=== PATIENT | male | born 1945 | race American Indian/Alaskan Native ===

== ENCOUNTER 2017-08-14 09:12 | Emergency (ER) | payer MEDICARE ==
[2017-08-14 09:13] VITALS: BMI 35.4
[2017-08-14 09:28] VITALS: TEMP 97.4
--- NOTE | 2017-08-14 10:07 | C.PDOC ---
History Of Present Illness 72-YEAR-OLD MALE, PRESENTS TO THE EMERGENCY DEPARTMENT WITH COMPLAINTS OF PERSIST R HAND SWELLING X 2 WEEKS. PT HAS HO GOUT, PS SIMILAR TO PRIOR EPISODES IN R HAND. SAW PMD GOT "SHOT IN MY ARM" 1 WEEK AGO BUT NO IMPROVE. PAIN AND SWELLING WORSE TOP OF HAND, R WRIST. WORSE W MOVEMENT. HO DM. DENIES FEVER, REDNESS, TRAUMA. PS TAKING "SMALL PURPLE PILL" X 3 DAYS WO IMPROVE. DENIES DIARRHEA. 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 DIFFUSE TEND TOP OF HAND. LIMITED ROM DUE TO PAIN. SKIN NO ERYTHEMA, LESIONS; INTACT NEURO INTACT Time Seen by Provider: 08/14/17 09:57 Chief Complaint (Nursing): Upper Extremity Problem/Injury History Per: Patient History/Exam Limitations: no limitations Past Medical History Reviewed: Historical Data, Nursing Documentation, Vital Signs Vital Signs: Last Vital Signs Temp 97.4 F L 08/14/17 09:27 Pulse 68 08/14/17 11:19 Resp 18 08/14/17 11:19 BP 142/82 08/14/17 11:19 Pulse Ox 97 08/14/17 11:19 - Medical History PMH: Diabetes, HTN, Hypercholesterolemia (NO LONGER ON MED.) Surgical History: Coronary Stent Family History: States: No Known Family Hx - Social History Hx Tobacco Use: Yes Hx Alcohol Use: No Hx Substance Use: No - Immunization History Hx Tetanus Toxoid Vaccination: No Hx Influenza Vaccination: No Hx Pneumococcal Vaccination: No Review Of Systems Except As Marked, All Systems Reviewed And Found Negative. Constitutional: Negative for: Fever Respiratory: Negative for: Shortness of Breath Gastrointestinal: Negative for: Nausea Musculoskeletal: Positive for: Hand Pain (RIGHT HAND W/ SWELL) Skin: Negative for: Rash Physical Exam - Physical Exam Appears: Non-toxic, Other (MILD DIST ) Skin: Warm, Dry, No Rash Head: Atraumatic, Normacephalic Eye(s): bilateral: Normal Inspection, PERRL Nose: Normal Oral Mucosa: Moist Neck: Normal ROM Respiratory: No Accessory Muscle Use Extremity: Other (EXT LUE NEG; R HAND +SEVERE SWELLING DORSAL W EXTENSION TO DORSAL DISTAL FOREARM. DIFFUSE TEND TOP OF HAND. LIMITED ROM DUE TO PAIN. ) Neurological/Psych: Oriented x3, Normal Speech ED Course And Treatment O2 Sat by Pulse Oximetry: 99 Disposition Counseled Patient/Family Regarding: Diagnosis, Need For Followup, Rx Given - Disposition Referrals: Kevin Haddad MD [Primary Care Provider] - Disposition: HOME/ ROUTINE Disposition Time: 11:22 Condition: IMPROVED Prescriptions: Indomethacin [Indocin] 50 mg PO TID PRN #12 cap PRN Reason: Pain, Moderate (4-7) predniSONE [Prednisone] 60 mg PO DAILY #12 tab Instructions: Gout (ED) Forms: [employer] (Nigerien) - Clinical Impression Clinical Impression: Gout, Hand swelling - Scribe Statement The provider has reviewed the documentation as recorded by the Scribe (Cecelia Campos) All medical record entries made by the Scribe were at my direction and personally dictated by me. I have reviewed the chart and agree that the record accurately reflects my personal performance of the history, physical exam, medical decision making, and the department course for this patient. I have also personally directed, reviewed, and agree with the discharge instructions and disposition.
[2017-08-14 11:20] VITALS: BP 142/82; PULSE 68; RESP 18
[2017-08-14 11:24] VITALS: O2SAT 99
== END 2017-08-14 11:50 | disposition home or self-care (01) ==
LOC: C.ER 09:12 → SUPCPDRO 09:12 → C.ER 11:50
DX: M10.9 Gout, unspecified (principal); M79.89 Other specified soft tissue disorders

== ENCOUNTER 2017-10-07 12:44 | Emergency (ER) | payer MEDICARE ==
[2017-10-07 12:45] VITALS: BMI 35.4
[2017-10-07 12:58] VITALS: TEMP 97.4
--- NOTE | 2017-10-07 13:45 | C.PDOC ---
History Of Present Illness 72 y/o male presents to ED for evaluation of headache, neck pain, and abdominal pain s/p slip and fall while walking to work today. Pt states he slipped on ice , and fell on his left side, hitting his head, and states he slipped again while trying to get up, fell, and hit the right side of his body. Pt notes that he was started on unknown blood thinner 1 week ago by PMD, Dr. Haddad, for unknown reasons. Otherwise, denies LOC, nausea, vomiting, shortness of breath, or any other associated symptoms at this time. Denies drug or alcohol use. Time Seen by Provider: 10/07/17 13:29 Chief Complaint (Nursing): Back Pain History Per: Patient History/Exam Limitations: no limitations Onset/Duration Of Symptoms: Hrs Current Symptoms Are (Timing): Still Present Quality Of Discomfort: "Pain" Previous Symptoms: Prior Injury Associated Symptoms: denies: New Weakness, New Numbness Exacerbating Factor(s): Nothing Recent travel outside of the [place]: No Additional History Per: Patient Past Medical History Reviewed: Historical Data, Nursing Documentation, Vital Signs Vital Signs: Last Vital Signs Temp 97.4 F L 10/07/17 12:56 Pulse 51 L 10/07/17 18:03 Resp 18 10/07/17 18:03 BP 142/60 10/07/17 18:03 Pulse Ox 100 10/07/17 18:03 - Medical History PMH: Diabetes, HTN, Hypercholesterolemia (NO LONGER ON MED.) Denies: Chronic Kidney Disease Surgical History: Coronary Stent Family History: States: Unknown Family Hx - Social History Hx Tobacco Use: Yes Hx Alcohol Use: No Hx Substance Use: No - Immunization History Hx Tetanus Toxoid Vaccination: No Hx Influenza Vaccination: No Hx Pneumococcal Vaccination: No Review Of Systems Except As Marked, All Systems Reviewed And Found Negative. Constitutional: Negative for: Fever, Chills Cardiovascular: Negative for: Chest Pain, Palpitations Respiratory: Negative for: Cough, Shortness of Breath Gastrointestinal: Positive for: Abdominal Pain. Negative for: Nausea, Vomiting Musculoskeletal: Positive for: Neck Pain. Negative for: Back Pain Neurological: Positive for: Headache. Negative for: Weakness, Numbness, Dizziness Physical Exam - Physical Exam Appears: Non-toxic, No Acute Distress Skin: Normal Color, Warm, Dry Head: Normacephalic, No Tenderness, Other (hematoma to left side of head) Eye(s): bilateral: Normal Inspection Oral Mucosa: Moist Neck: Normal ROM, No Midline Cervical Tenderness, Paracervical Tenderness (mild left), Supple Chest: Symmetrical, No Deformity, Tenderness (right bony rib tenderness) Cardiovascular: Rhythm Regular, No Murmur Respiratory: Normal Breath Sounds, No Rales, No Rhonchi, No Wheezing Gastrointestinal/Abdominal: Soft, Tenderness (right side of abdomen), No Guarding, No Rebound Back: Normal Inspection Extremity: Normal ROM, No Tenderness, Capillary Refill (less than 2 seconds), No Deformity Extremity: Bilateral: Hips Non-Tender (No bony hip tenderness), Normal ROM, Pelvis-Stable Neurological/Psych: Oriented x3 (Alert, awake), Normal Speech Gait: Steady ED Course And Treatment - Laboratory Results Result Diagrams: 10/07/17 14:38 10/07/17 14:38 Medical Decision Making Medical Decision Making: Blood work, CXR, head CT, cervical spine CT, chest, abd, pelvis CT ordered and reviewed. Pt was given Morphine IVP. CT Head FINDINGS: HEMORRHAGE: No intracranial hemorrhage. BRAIN: No mass effect or edema. Cortical atrophy, periventricular small vessel disease VENTRICLES: Unremarkable. No hydrocephalus. CALVARIUM: Unremarkable. 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 Disruption the medial wall of the right maxillary sinus suggests prior surgery. MASTOID AIR CELLS: Unremarkable as visualized. No inflammatory changes. OTHER FINDINGS: None. IMPRESSION: No acute intracranial abnormalities. No significant findings to account for the clinical presentation. No significant interval change compared to the prior examination(s). C-spine FINDINGS: VERTEBRAE: No fracture. Normal alignment. No destructive bony lesion. DISCS/SPINAL CANAL/NEURAL FORAMINA: There are multiple osteophyte disc bulging/ protrusion seen at the cervical spine. There is a moderate-sized disc bulge at C2-C3-C3-C4, C4-C5 and C5-C6 associated with moderate spinal and neural foraminal narrowing more prominent at C4-C5 and C5-C6. Multilevel [id number] narrowing of the disc is space also noted more prominent at C4-C5 and C5-C6. PARASPINAL SOFT TISSUES: Unremarkable. OTHER FINDINGS: Mild emphysematous changes are noted at the lung apices. IMPRESSION: No evidence of acute fracture or dislocation. Moderate degenerative disc changes. Multilevel moderate to large disc protrusion associated with multilevel spinal and neural foraminal narrowing more prominent at C3-C4 and C5-C6. CT CHEST WITH CONTRAST: LUNGS: Clear. No nodule, mass or consolidation. MEDIASTINUM: Unremarkable. Normal caliber aorta and pulmonary arterial trunk. No aortic dissection. Mild cardiomegaly is noted. LYMPH NODES: Unremarkable. PLEURA: Unremarkable. No pneumothorax. No pleural fluid. BONES: There is slightly displaced fracture at the posterior aspect of the right 12th rib. OTHER FINDINGS: None. CT ABDOMEN AND PELVIS: LIVER: Unremarkable. No gross lesion or ductal dilatation. GALLBLADDER AND BILE DUCTS: Unremarkable. PANCREAS: Unremarkable. No gross lesion or ductal dilatation. SPLEEN: Unremarkable. ADRENALS: Unremarkable. No mass. KIDNEYS AND URETERS: The kidneys enhance symmetrically. There are multiple cystic lesions are noted in both kidneys. No evidence of hydronephrosis. No evidence of perirenal fluid. VASCULATURE: Unremarkable. No aortic aneurysm. Moderate to severe atherosclerotic disease seen. Multiple foci of mural thickening and atherosclerotic calcification noted in the abdominal aorta and common iliac arteries. BOWEL: Unremarkable. No obstruction. No gross mural thickening. Mild constipation is noted. APPENDIX: No evidence of appendicitis. PERITONEUM: Unremarkable. No free fluid. No free air. LYMPH NODES: Unremarkable. No enlarged lymph nodes. BLADDER: Unremarkable. REPRODUCTIVE: Unremarkable. BONES: No acute fracture. OTHER FINDINGS: None. IMPRESSION: No evidence of pneumothorax or pleural effusion. Slightly displaced fracture at the posterior aspect of the right 12th rib. No evidence of acute pathology in the abdomen and pelvis. Mild cardiomegaly. 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 On reevaluation, patient reports that pain is improved. Vitals WNL. He reports that he can ambulate around and wants to go home. Spoke to PMD Dr. Haddad who will follow-up with patient tomorrow for his isolated rib fracture. Patient was given incentive spirometer and discharged with pain medication. He called a friend to take him home and ambulated out of ED without issue. Disposition - Disposition Referrals: Kevin Haddad MD [Staff Provider] - Disposition: HOME/ ROUTINE Disposition Time: 18:00 Condition: GOOD Additional Instructions: Follow-up with Dr. Haddad tomorrow. Return to ED if condition worsens. Use incentive spirometry. Percocet for severe pain. Motrin for mild pain. Prescriptions: oxyCODONE/Acetaminophen [Percocet 5/325 mg Tab] 1 ea PO Q6 #10 tab Instructions: How to Use an Incentive Spirometer (ED), Rib Fracture (ED) Forms: [employer] (Urdu) - Clinical Impression Clinical Impression: Rib fracture - Scribe Statement The provider has reviewed the documentation as recorded by the Scribe Florencio Choudhury All medical record entries made by the Scribe were at my direction and personally dictated by me. I have reviewed the chart and agree that the record accurately reflects my personal performance of the history, physical exam, medical decision making, and the department course for this patient. I have also personally directed, reviewed, and agree with the discharge instructions and disposition.
--- NOTE | 2017-10-07 14:30 | RAD ---
PROCEDURE: CHEST RADIOGRAPH, 1 VIEW HISTORY: fall COMPARISON: 09/02/2015. FINDINGS: LUNGS: The lungs are well inflated and clear. PLEURA: No pneumothorax or pleural fluid seen. CARDIOVASCULAR: Normal. OSSEOUS STRUCTURES: No significant abnormalities. VISUALIZED UPPER ABDOMEN: Normal. OTHER FINDINGS: None. IMPRESSION: No acute findings.
[2017-10-07] MEDS ORDERED: Morphine 4 MG/ML VIAL ONE (14:40)
[2017-10-07 14:43] LABS: BASO # 0.1 K/uL (0.0-0.2); BASO % 0.7 % (0.0-2.0); EOS # 0.2 K/uL (0.0-0.7); LYMPH # 1.8 K/uL (1.0-4.3); RED CELL DISTRIBUTION WIDTH 16.8 % (11.5-14.5)
[2017-10-07 14:47] LABS: EOS % 2.6 % (0.0-4.0); HEMATOCRIT 40.2 % (35.0-51.0); LYMPH % 22.7 % (20.0-40.0); MEAN CORPUSCULAR HEMOGLOBIN 27.6 pg (27.0-31.0); MEAN CORPUSCULAR HGB CONC 32.8 g/dL (33.0-37.0); MEAN PLATELET VOLUME 7.4 fL (7.2-11.7); MONO # 0.4 K/uL (0.0-0.8); MONO % 5.4 % (0.0-10.0)
[2017-10-07 14:51] LABS: INR 1.1
[2017-10-07 14:53] LABS: MEAN CELL VOLUME 84.1 fL (80.0-94.0)
[2017-10-07 14:55] LABS: ALB/GLOB RATIO 1.3 (1.0-2.1); ALKALINE PHOSPHATASE 124 U/L (38-126); ALT/SGPT 41 U/L (21-72); AST/SGOT 45 U/L (17-59); BILIRUBIN,TOTAL 0.8 mg/dL (0.2-1.3); BLOOD UREA NITROGEN 19 mg/dL (9-20); CALCIUM 8.9 mg/dl (8.6-10.4); CARBON DIOXIDE 32 mmol/L (22-30); CHLORIDE 99 mmol/L (98-107); GFR AFRICAN-AMERICAN > 60; GLUCOSE,RANDOM 133 mg/dL (75-110); POTASSIUM 4.1 mmol/L (3.6-5.2); SODIUM 139 mmol/L (132-148); TOTAL PROTEIN 7.5 g/dL (6.3-8.3)
[2017-10-07 14:58] VITALS: O2SAT 100
[2017-10-07] MEDS ORDERED: Iodixanol 320 MG/ML 100 ML BOTTLE IV ONE (16:21)
--- NOTE | 2017-10-07 17:29 | CT ---
PROCEDURE: CT HEAD WITHOUT CONTRAST. HISTORY: fall on ice, hematoma to L scalp, thinners COMPARISON: 05/02/2015. TECHNIQUE: Axial computed tomography images were obtained through the head/brain without intravenous contrast. Radiation dose: Total exam DLP = 810.37 mGy-cm. This CT exam was performed using one or more of the following dose reduction techniques: Automated exposure control, adjustment of the mA and/or kV according to patient size, and/or use of iterative reconstruction technique. FINDINGS: HEMORRHAGE: No intracranial hemorrhage. BRAIN: No mass effect or edema. Cortical atrophy, periventricular small vessel disease VENTRICLES: Unremarkable. No hydrocephalus. CALVARIUM: Unremarkable. 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 Disruption the medial wall of the right maxillary sinus suggests prior surgery. MASTOID AIR CELLS: Unremarkable as visualized. No inflammatory changes. OTHER FINDINGS: None. IMPRESSION: No acute intracranial abnormalities. No significant findings to account for the clinical presentation. No significant interval change compared to the prior examination(s).
--- NOTE | 2017-10-07 17:34 | CT ---
PROCEDURE: CT Cervical Spine without contrast HISTORY: Status post fall with neck pain COMPARISON: None available. TECHNIQUE: Axial computed tomography images were obtained of the cervical spine without the use of intravenous contrast. Coronal and sagittal reformatted images were created and reviewed. Radiation dose: Total exam DLP = 494.02 mGy-cm. This CT exam was performed using one or more of the following dose reduction techniques: Automated exposure control, adjustment of the mA and/or kV according to patient size, and/or use of iterative reconstruction technique. FINDINGS: VERTEBRAE: No fracture. Normal alignment. No destructive bony lesion. DISCS/SPINAL CANAL/NEURAL FORAMINA: There are multiple osteophyte disc bulging/ protrusion seen at the cervical spine. There is a moderate-sized disc bulge at C2-C3-C3-C4, C4-C5 and C5-C6 associated with moderate spinal and neural foraminal narrowing more prominent at C4-C5 and C5-C6. Multilevel [id number] narrowing of the disc is space also noted more prominent at C4-C5 and C5-C6. PARASPINAL SOFT TISSUES: Unremarkable. OTHER FINDINGS: Mild emphysematous changes are noted at the lung apices. IMPRESSION: No evidence of acute fracture or dislocation. Moderate degenerative disc changes. Multilevel moderate to large disc protrusion associated with multilevel spinal and neural foraminal narrowing more prominent at C3-C4 and C5-C6.
--- NOTE | 2017-10-07 17:52 | CT ---
PROCEDURE: CT Chest, Abdomen and Pelvis with intravenous contrast HISTORY: fall on blood thinners, R chest wall and abd tende COMPARISON: None. TECHNIQUE: IV dose administered: 100 mL Visipaque 320 Radiation dose: Total exam DLP = 799.73 mGy-cm. This CT exam was performed using one or more of the following dose reduction techniques: Automated exposure control, adjustment of the mA and/or kV according to patient size, and/or use of iterative reconstruction technique. FINDINGS: CT CHEST WITH CONTRAST: LUNGS: Clear. No nodule, mass or consolidation. MEDIASTINUM: Unremarkable. Normal caliber aorta and pulmonary arterial trunk. No aortic dissection. Mild cardiomegaly is noted. LYMPH NODES: Unremarkable. PLEURA: Unremarkable. No pneumothorax. No pleural fluid. BONES: There is slightly displaced fracture at the posterior aspect of the right 12th rib. OTHER FINDINGS: None. CT ABDOMEN AND PELVIS: LIVER: Unremarkable. No gross lesion or ductal dilatation. GALLBLADDER AND BILE DUCTS: Unremarkable. PANCREAS: Unremarkable. No gross lesion or ductal dilatation. SPLEEN: Unremarkable. ADRENALS: Unremarkable. No mass. KIDNEYS AND URETERS: The kidneys enhance symmetrically. There are multiple cystic lesions are noted in both kidneys. No evidence of hydronephrosis. No evidence of perirenal fluid. VASCULATURE: Unremarkable. No aortic aneurysm. Moderate to severe atherosclerotic disease seen. Multiple foci of mural thickening and atherosclerotic calcification noted in the abdominal aorta and common iliac arteries. BOWEL: Unremarkable. No obstruction. No gross mural thickening. Mild constipation is noted. APPENDIX: No evidence of appendicitis. PERITONEUM: Unremarkable. No free fluid. No free air. LYMPH NODES: Unremarkable. No enlarged lymph nodes. BLADDER: Unremarkable. REPRODUCTIVE: Unremarkable. BONES: No acute fracture. OTHER FINDINGS: None. IMPRESSION: No evidence of pneumothorax or pleural effusion. Slightly displaced fracture at the posterior aspect of the right 12th rib. No evidence of acute pathology in the abdomen and pelvis. Mild cardiomegaly. 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
[2017-10-07 18:09] VITALS: BP 142/60; PULSE 51; RESP 18
== END 2017-10-07 19:04 | disposition home or self-care (01) ==
LOC: C.ER 12:44
DX: S22.31XA Fracture of one rib, right side, initial encounter for closed fracture (principal); W01.0XXA Fall on same level from slipping, tripping and stumbling without subsequent striking against object, initial encounter
CPT/HCPCS: 70450; 71010; 71260; 72125; 74177; 80053; 85025; 85610; 85730; 86850; 86900; 96374; 99285; J2270; Q9967

== ENCOUNTER 2017-11-05 01:13 | Emergency (ER) | payer MEDICARE ==
[2017-11-05 01:14] VITALS: BMI 35.4
[2017-11-05 01:43] VITALS: RESP 20
[2017-11-05] MEDS ORDERED: Tetracaine 0.5% Ophth (OR ONLY) OU STA (02:00)
[2017-11-05] MEDS ORDERED: Tetracaine 0.5% Ophth (OR ONLY) ONE ×2 (02:08→03:26)
[2017-11-05] MEDS ORDERED: Oxycodone/Acetaminophen 5/325 mg Tab PO STA (02:34)
[2017-11-05] MEDS ORDERED: Oxycodone/Acetaminophen 5/325 mg Tab ONE (03:23)
--- NOTE | 2017-11-05 04:02 | C.PDOC ---
History Of Present Illness 72 year old male presents to the ER with a complaint of posterior neck pain for the past 3 weeks that worsens with movement and radiates to the face, associated with left eye pain for the past 3 days. Patient has a Hx of cataracts and was seen previous by Dr. Houston but did not call him for this complaint. Patient also notes he has been using steroid eye drops for unknown reasons. Denies change in vision, nausea, vomiting, or recent injury. Chief Complaint (Nursing): Eye Problem History Per: Patient History/Exam Limitations: no limitations Onset/Duration Of Symptoms: Days Current Symptoms Are (Timing): Still Present Injury To Eye?: No Wears Contact Lens?: No Associated Symptoms: Pain. denies: Decreased Vision, FB Sensation Recent travel outside of the [place]: No Past Medical History Reviewed: Historical Data, Nursing Documentation, Vital Signs Vital Signs: Last Vital Signs Temp 97.7 F 11/05/17 01:42 Pulse 62 11/05/17 01:42 Resp 20 11/05/17 01:42 BP 184/76 H 11/05/17 01:42 Pulse Ox 99 11/05/17 04:17 - Medical History PMH: Diabetes, HTN, Hypercholesterolemia (NO LONGER ON MED.) Surgical History: Coronary Stent Family History: States: Unknown Family Hx - Social History Hx Tobacco Use: Yes Hx Alcohol Use: No Hx Substance Use: No - Immunization History Hx Tetanus Toxoid Vaccination: No Hx Influenza Vaccination: No Hx Pneumococcal Vaccination: No Review Of Systems Eyes: Positive for: Pain Gastrointestinal: Negative for: Nausea, Vomiting Musculoskeletal: Positive for: Neck Pain Physical Exam - Physical Exam Appears: Non-toxic Skin: Normal Color, Warm, Dry Head: Atraumatic, Normacephalic Eye(s): bilateral: PERRL, EOMI, left: Other (Firm, erythematous, no periorbital swelling, attempted tonopen eye pressure with questionable results of 54 after multiple attempts.) Oral Mucosa: Moist Neck: No Midline Cervical Tenderness, Paracervical Tenderness, Supple Neurological/Psych: Oriented x3, Normal Speech ED Course And Treatment O2 Sat by Pulse Oximetry: 99 (Room air) Pulse Ox Interpretation: Normal - Other Rad Cervical spine x-ray X-Ray: Interpreted by Me, Viewed By Me Interpretation: Severe degenerative joint disease. Progress Note: Percocet administered for pain. X-ray cervical spine ordered, results showed severe degenerative joint disease. Case discussed with Dr. Morton, Satellite Installation Technician insurance verification representative, who instructed not to treat patient in the ER and to sent him to his office at 12:30. Disposition - Disposition Referrals: Ashutosh Morton MD [Staff Provider] - Disposition: HOME/ ROUTINE Disposition Time: 05:06 Condition: STABLE Additional Instructions: Follow up with your PMD within 1-2days. Return to ED if feel worse. Please see Satellite Installation Technician today 11/05/2017 at 12:30 pm. Prescriptions: oxyCODONE/Acetaminophen [Percocet 5/325 mg Tab] 1 tab PO QID PRN #20 tab PRN Reason: Pain Instructions: Eye Pain (ED), Cervical Radiculopathy (ED) Forms: [employer] (Polish) - Clinical Impression Clinical Impression: Pain in eye, Neck pain - PA / FIRST MATE / Resident Statement MD/DO has reviewed & agrees with the documentation as recorded. - Scribe Statement The provider has reviewed the documentation as recorded by the Scribliya Garcia All medical record entries made by the Scribliya were at my direction and personally dictated by me. I have reviewed the chart and agree that the record accurately reflects my personal performance of the history, physical exam, medical decision making, and the department course for this patient. I have also personally directed, reviewed, and agree with the discharge instructions and disposition.
[2017-11-05 06:20] VITALS: BP 130/76; PULSE 84; TEMP 98; O2SAT 97
--- NOTE | 2017-11-05 08:53 | RAD ---
PROCEDURE: Cervical Spine Radiographs. HISTORY: Pain. COMPARISON: CT cervical spine without contrast performed 10/07/17 FINDINGS: Limited two views provided. BONES: Straightening of the normal cervical lordosis may be related to muscle spasm or positioning. Severe multilevel degenerative changes of the spine with prominent anterior osteophytes at C5-C6. The dens tip is not visualized. Partially obscured C7 on lateral view. DISC SPACES: Unremarkable. SOFT TISSUES: Unremarkable. No prevertebral soft tissue swelling. OTHER FINDINGS: Opacification noted within the soft tissues of the right neck likely related to carotid artery. IMPRESSION: Limited study. Straightening of the normal cervical lordosis may be related to muscle spasm or positioning. Severe multilevel degenerative changes of the spine with prominent anterior osteophytes at C5-C6. Dens tip is not visualized. Partially obscured C7 on lateral view. Cross-sectional imaging suggested for further evaluation if indicated.
== END 2017-11-05 06:19 | disposition home or self-care (01) ==
LOC: C.ER 01:13
DX: M54.2 Cervicalgia (principal); H57.12 Ocular pain, left eye

== ENCOUNTER 2018-01-14 16:18 | Inpatient (IN) | payer OTHER, MEDICARE ==
[2018-01-14 16:19] VITALS: BMI 35.4
[2018-01-14 17:02] LABS: BASO # 0.1 K/uL (0.0-0.2); BASO % 1.2 % (0.0-2.0); EOS # 0.4 K/uL (0.0-0.7); EOS % 5.4 % (0.0-4.0); LYMPH # 1.9 K/uL (1.0-4.3); LYMPH % 25.8 % (20.0-40.0); MEAN CELL VOLUME 84.3 fL (80.0-94.0); MEAN CORPUSCULAR HEMOGLOBIN 27.9 pg (27.0-31.0); MEAN CORPUSCULAR HGB CONC 33.1 g/dL (33.0-37.0); MEAN PLATELET VOLUME 7.8 fL (7.2-11.7); MONO # 0.5 K/uL (0.0-0.8); MONO % 6.9 % (0.0-10.0); NEUT # 4.4 K/uL (1.8-7.0); NEUT % 60.7 % (50.0-75.0); RBC 4.29 Mil/uL (4.40-5.90); RED CELL DISTRIBUTION WIDTH 16.3 % (11.5-14.5); WHITE BLOOD COUNT 7.2 K/uL (4.8-10.8)
[2018-01-14 17:15] LABS: ALB/GLOB RATIO 1.1 (1.0-2.1); ALBUMIN 3.8 g/dL (3.5-5.0); ALT/SGPT 22 U/L (21-72); AST/SGOT 17 U/L (17-59); BLOOD UREA NITROGEN 16 mg/dL (9-20); CALCIUM 8.9 mg/dl (8.6-10.4); GFR AFRICAN-AMERICAN > 60; GFR NON-AFRICAN AMERICAN 50; LIPASE 803 U/L (23-300)
--- NOTE | 2018-01-14 17:15 | C.PDOC ---
History Of Present Illness 72 year old male presents to the ER with a complaint of chest pain since last night that began at 20:30 while watching TV. Pain does not radiate but notes its exacerbated by bending down. Patient reports he shortly prior to onset. He had 3 stents placed 4 years ago and he is followed by a slot floor attendant at [facility] [place] but does not recall the name. Patient states he is a smoker but denies any ETOH or drug use. Patient went to see Dr. Haddad today in the office who sent him to the ER for evaluation. Denies leg pain/swelling, SOB, nausea, or vomiting. Time Seen by Provider: 01/14/18 16:25 Chief Complaint (Nursing): Chest Pain History Per: Patient History/Exam Limitations: no limitations Onset/Duration Of Symptoms: Hrs Current Symptoms Are (Timing): Still Present Associated Symptoms: denies: Nausea, Dyspnea, Diaphoresis, Syncope Modifying Factors: None Exacerbating Factors: None Alleviating Factors: None Recent travel outside of the [place]: No Past Medical History Reviewed: Historical Data, Nursing Documentation, Vital Signs Vital Signs: Last Vital Signs Temp 97.6 F 01/17/18 23:20 Pulse 74 01/17/18 23:20 Resp 20 01/17/18 23:20 BP 153/69 H 01/17/18 23:20 Pulse Ox 100 01/17/18 23:20 - Medical History PMH: Diabetes, HTN, Hypercholesterolemia (NO LONGER ON MED.) Surgical History: Coronary Stent - [facility] Procedures FLUOROSCOPY OF ABDOMINAL AORTA USING OTHER CONTRAST (01/16/18) FLUOROSCOPY OF LEFT HEART USING OTHER CONTRAST (01/16/18) FLUOROSCOPY OF MULTIPLE CORONARY ARTERIES USING OTH CONTRAST (01/16/18) MEASURE OF CARDIAC SAMPL & PRESSURE, L HEART, PERC APPROACH (01/16/18) Family History: States: Unknown Family Hx - Social History Hx Tobacco Use: Yes Hx Alcohol Use: No Hx Substance Use: No - Immunization History Hx Tetanus Toxoid Vaccination: No Hx Influenza Vaccination: No Hx Pneumococcal Vaccination: No Review Of Systems Constitutional: Negative for: Fever, Chills Cardiovascular: Positive for: Chest Pain. Negative for: Palpitations Respiratory: Negative for: Cough, Shortness of Breath Gastrointestinal: Negative for: Nausea, Vomiting, Abdominal Pain Musculoskeletal: Negative for: Leg Pain Physical Exam - Physical Exam Appears: Well, Non-toxic, No Acute Distress Skin: Normal Color, Warm, Dry Head: Atraumatic, Normacephalic Eye(s): bilateral: Normal Inspection, EOMI Nose: Normal Oral Mucosa: Moist Neck: Normal ROM, Supple Chest: Symmetrical, No Tenderness Cardiovascular: Rhythm Regular, Murmur Respiratory: Normal Breath Sounds, No Rales, No Rhonchi, No Wheezing Gastrointestinal/Abdominal: Soft, Tenderness (LUQ), No Guarding, No Rebound Extremity: Normal ROM (x4) Neurological/Psych: Oriented x3, Normal Speech ED Course And Treatment - Laboratory Results Result Diagrams: 01/17/18 08:11 01/17/18 08:11 ECG: Interpreted By Me (Dr Bonilla), Viewed By Me ECG Rhythm: Sinus Rhythm, R BBB (new onset) ECG Interpretation: Abnormal (08/28/15) Rate From EC O2 Sat by Pulse Oximetry: 96 (Room air) Pulse Ox Interpretation: Normal Progress Note: Blood work, urinalysis, and CXR ordered. Aspirin administered. Case discsused with Dr Haddad, agreed upon admission. Disposition - Disposition Disposition: HOSPITALIZED Disposition Time: 18:00 Condition: STABLE - Clinical Impression Clinical Impression: Chest pain, CAD (coronary artery disease) - PA / TRAVELING CONSTRUCTION SUPERINTENDENT / Resident Statement MD/DO has reviewed & agrees with the documentation as recorded. - Scribe Statement The provider has reviewed the documentation as recorded by the Scribliya Garcia All medical record entries made by the Scribe were at my direction and personally dictated by me. I have reviewed the chart and agree that the record accurately reflects my personal performance of the history, physical exam, medical decision making, and the department course for this patient. I have also personally directed, reviewed, and agree with the discharge instructions and disposition.
[2018-01-14 17:27] LABS: B-TYPE NATRIURETIC PEPTIDE 899 pg/mL (0-900); CK-MB 0.67 ng/mL (0.0-3.38)
[2018-01-14 20:06] LABS: SQUAMOUS EPITHIAL < 1 /hpf (0-5); URINE BILIRUBIN NEGATIVE (NEGATIVE); URINE BLOOD NEGATIVE (NEGATIVE); URINE CLARITY Clear (Clear); URINE COLOR Yellow (YELLOW); URINE GLUCOSE (UA) NORMAL (Normal); URINE LEUKOCYTE ESTERASE NEG Leu/uL (Negative); URINE PROTEIN NEGATIVE (NEGATIVE)
[2018-01-15 01:25] LABS: CK-MB 0.52 ng/mL (0.0-3.38); TROPONIN I 0.014 ng/mL (0.00-0.120)
--- NOTE | 2018-01-15 08:25 | RAD ---
PROCEDURE: CHEST RADIOGRAPH, 1 VIEW HISTORY: SOB COMPARISON: 10/07/2017. FINDINGS: LUNGS: The lungs are well inflated without focal consolidation. There is bibasilar atelectasis. PLEURA: No pneumothorax or pleural fluid seen. CARDIOVASCULAR: Normal. OSSEOUS STRUCTURES: No significant abnormalities. VISUALIZED UPPER ABDOMEN: Normal. OTHER FINDINGS: None. IMPRESSION: No active pulmonary disease.
[2018-01-15 08:47] LABS: CK-MB 0.46 ng/mL (0.0-3.38); TROPONIN I 0.014 ng/mL (0.00-0.120)
[2018-01-15] MEDS: Enoxaparin 40 mg Syringe SC SCH (09:18)
--- NOTE | 2018-01-15 18:14 | CP.PCM.CON ---
History of Present Illness - History of Present Illness History of Present Illness: 72 Y/O WITH SEVERAL HOURS OF CP. DESCRIBED TIGHTNESS IN LEFT LOWER CHEST. WAXES AND WANES, 5/10 AT WORST. NO RADIATION OR ASSOC SYMPTOMS. PT HAS HX OF PCI X 3. BROUGHT ON BY SITTING UP FROM SUPINE POSITION OR BENDING OVER AT WAIST. Review of Systems - Constitutional Constitutional: As Per HPI. absent: Anorexia, Chills, Daytime Sleepiness, Excessive Sweating, Fatigue, Fever, Frequent Falls, Headache, Increased Appetite , Lethargy, Malaise, Night Sweats, Snoring, Sleep Apnea, Weight Gain, Weight Loss, Weakness, Other - EENT Eyes: As Per HPI. absent: Blind Spots, Blurred Vision, Change in Vision, Decreased Night Vision, Diplopia, Discharge, Dry Eye, Exophthalmos, Floaters, Irritation, Itchy Eyes, Loss of Peripheral Vision, Pain, Photophobia, Requires Corrective Lenses, Sees Flashes, Spots in Vision, Tunnel Vision, Other Visual Disturbances, Loss of Vision, Other Ears: As Per HPI. absent: Decreased Hearing, Ear Discharge, Ear Pain, Tinnitus , Abnormal Hearing, Disequilibrium, Dizziness, Other Nose/Mouth/Throat: As Per HPI. absent: Epistaxis, Nasal Congestion, Nasal Discharge, Nasal Obstruction, Nasal Trauma, Nose Pain, Post Nasal Drip, Sinus Pain, Sinus Pressure, Bleeding Gums, Change in Voice, Dental Pain, Dry Mouth, Dysphagia, Halitosis, Hoarsness, Lip Swelling, Mouth Lesions, Mouth Pain, Odynophagia, Sore Throat, Throat Swelling, Tongue Swelling, Facial Pain, Neck Pain, Neck Mass, Other - Cardiovascular Cardiovascular: As Per HPI, Chest Pain at Rest. absent: Acrocyanosis, Chest Pain, Chest Pain with Activity, Claudication, Diaphoresis, Dyspnea, Dyspnea on Exertion, Edema, Irregular Heart Rhythm, Pain Radiating to Arm/Neck/Jaw, Leg Edema, Leg Ulcers, Lightheadedness, Orthopnea, Palpitations, Paroxysmal Nocturnal Dyspnea, Pedal Edema, Radiating Pain, Rapid Heart Rate, Slow Heart Rate, Syncope, Other - Respiratory Respiratory: As Per HPI. absent: Cough, Dyspnea, Hemoptysis, Dyspnea on Exertion, Wheezing, Snoring, Stridor, Pain on Inspiration, Chest Congestion, Excessive Mucous Production, Change in Mucous Color, Pain with Coughing, Other - Gastrointestinal Gastrointestinal: As Per HPI. absent: Abdominal Pain, Belching, Bloating, Change in Bowel Habits, Change in Stool Character, Coffee Ground Emesis, Constipation, Cramping, Diarrhea, Dyspepsia, Dysphagia, Early Satiety, Excessive Flatus, Fecal Incontinence, Heartburn, Hematemesis, Hematochezia, Loose Stools, Melena, Nausea, Odynophagia, Temesmus, Vomiting, Other - Genitourinary Genitourinary: As Per HPI. absent: Change in Urinary Stream, Difficulty Urinating, Dysuria, Flank Pain, Hematuria, Pyuria, Nocturia, Urinary Incontinence, Urinary Frequency, Urinary Hesitance, Urinary Urgency, Voiding Freq/Small Amts, Freq UTI, Hx Renal/Bladder Calculi, Hx /Renal Surgery, Bladder Distension, Other - Reproductive: Male Reproductive:Male: As Per HPI - Musculoskeletal Musculoskeletal: As Per HPI. absent: Abnormal Gait, Arthralgias, Atrophy, Back Pain, Deformity, Joint Swelling, Limited Range of Motion, Loss of Height, Muscle Cramps, Muscle Weakness, Myalgias, Neck Pain, Numbness, Radiating Pain into Limb, Stiffness, Tingling, Other - Integumentary Integumentary: As Per HPI. absent: Acne, Alopecia, Bleeding Lesions, Change in Hair, Change in Nails, Change in Pigmentation, Changing Lesions, Dry Skin, Erythema, Furuncle, Hirsutism, Lesions, New Lesions, Non-Healing Lesions, Photosensitivity, Pruritus, Rash, Skin Pain, Skin Ulcer, Sores, Striae, Swelling , Unusual Bruising, Wounds, Jaundice, Other - Neurological Neurological: As Per HPI. absent: Abnormal Gait, Abnormal Hearing, Abnormal Movements, Abnormal Speech, Behavioral Changes, Burning Sensations, Confusion, Convulsions, Disequilibrium, Dizziness, Numbness, Focal Weakness, Frequent Falls , Headaches, Lack of Coordination, Loss of Vision, Memory Loss, Paresthesias, Radicular Pain, Restless Legs, Sensory Deficit, Syncope, Tingling, Tremor, Vertigo, Weakness, Other Visual Disturbances, Other - Psychiatric Psychiatric: As Per HPI. absent: Abnormal Sleep Pattern, Anhedonia, Anxiety, Auditory Hallucinations, Behavioral Changes, Change in Appetite, Change in Libido, Confusion, Depression, Difficulty Concentrating, Hallucinations, Homicidal Ideation, Hopelessness, Irritability, Memory Loss, Mood Swings, Panic Attacks, Paranoia, Suicidal Ideation, Visual Hallucinations, Tactile Hallucinations, Other - Endocrine Endocrine: As Per HPI. absent: Change in Body Appearance, Change in Libido, Cold Intolorance, Deepening of Voice, Excessive Sweating, Fatigue, Flushing, Heat Intolorance, Increase in Ring/Shoe/Hat Size, Palpitations, Polydipsia, Polyphagia, Polyuria, Other - Hematologic/Lymphatic Hematologic: As Per HPI. absent: Easy Bleeding, Easy Bruising, Lymphadenopathy , Other Past Patient History - Infectious Disease Hx of Infectious Diseases: None - Past Medical History & Family History Past Medical History?: Yes - Past Social History Smoking Status: Light Smoker < 10 Cigarettes Daily Alcohol: None Drugs: Denies Home Situation {Lives}: With Family Domestic Violence: Negative - CARDIAC Hx Hypercholesterolemia: Yes (NO LONGER ON MED.) Hx Hypertension: Yes - PULMONARY Hx Respiratory Disorders: No - NEUROLOGICAL Hx Neurological Disorder: Yes Other/Comment: STILES'S PALSY - HEENT Hx HEENT Problems: Yes Hx Cataracts: Yes (BILAT.) - RENAL Hx Chronic Kidney Disease: No - ENDOCRINE/METABOLIC Hx Endocrine Disorders: Yes Hx Diabetes Mellitus Type 2: Yes - HEMATOLOGICAL/ONCOLOGICAL Hx Blood Disorders: No - INTEGUMENTARY Hx Dermatological Problems: No - MUSCULOSKELETAL/RHEUMATOLOGICAL Hx Gout: Yes - GASTROINTESTINAL Hx Gastrointestinal Disorders: No - GENITOURINARY/GYNECOLOGICAL Hx Genitourinary Disorders: No - PSYCHIATRIC Hx Substance Use: No - SURGICAL HISTORY Hx Coronary Stent: Yes - ANESTHESIA Hx Anesthesia: Yes Hx Anesthesia Reactions: No Hx Malignant Hyperthermia: No Meds Allergies/Adverse Reactions: Allergies Allergy/AdvReac Type Severity Reaction Status Date / Time No Known Allergies Allergy Verified 01/14/18 16:31 - Medications Medications: Current Medications Aspirin (Aspirin) 325 mg PO DAILY [facility] Last Admin: 01/15/18 09:18 Dose: 325 mg Enoxaparin Sodium (Lovenox) 40 mg SC DAILY [facility] Last Admin: 01/15/18 09:18 Dose: 40 mg Metoprolol Tartrate (Lopressor) 25 mg PO BID [facility] Physical Exam - Constitutional Appears: Well - Head Exam Head Exam: ATRAUMATIC, NORMAL INSPECTION, NORMOCEPHALIC - Eye Exam Eye Exam: EOMI, Normal appearance, PERRL. absent: Conjunctival injection, Nystagmus, Periorbital swelling, Periorbital tenderness, Scleral icterus Pupil Exam: NORMAL ACCOMODATION, PERRL. absent: Fixed, Irregular, Miosis, Mydriatic, Unequal - ENT Exam ENT Exam: Mucous Membranes Moist, Normal Exam. absent: Mucous Membranes Dry, Normal External Ear Exam, Normal Oropharynx, TM's Normal Bilaterally - Neck Exam Neck exam: Positive for: Normal Inspection. Negative for: Full Rom, Lymphadenopathy, Meningismus, Tenderness, Thyromegaly - Respiratory Exam Respiratory Exam: Decreased Breath Sounds, NORMAL BREATHING PATTERN. absent: Accessory Muscle Use, Chest Wall Tenderness, Prolonged Expiratory Phase, Rales, Rhonchi, Wheezes, Respiratory Distress, Stridor - Cardiovascular Exam Cardiovascular Exam: Bradycardia, REGULAR RHYTHM, +S1, +S2, Systolic Murmur. absent: Tachycardia, Clicks, Diastolic murmur, Gallop, Irregular Rhythm, JVD, RRR, Rubs, +S4 - GI/Abdominal Exam GI & Abdominal Exam: Normal Bowel Sounds, Soft. absent: Bruit, Diminished Bowel Sounds, Distended, Firm, Guarding, Hernia, Hyperactive Bowel Sounds, Hypoactive Bowel Sounds, Mass, Organomegaly, Pulsatile Mass, Rebound, Rigid, Tenderness - Rectal Exam Rectal Exam: Deferred - Extremities Exam Extremities exam: Positive for: normal inspection. Negative for: calf tenderness, full ROM, joint swelling, normal capillary refill, pedal edema, tenderness, pedal pulses present - Back Exam Back exam: NORMAL INSPECTION. absent: CVA tenderness (L), CVA tenderness (R), FULL ROM, muscle spasm, paraspinal tenderness, rash noted, tenderness, vertebral tenderness - Neurological Exam Neurological exam: Alert, CN II-XII Intact, Normal Gait, Oriented x3, Reflexes Normal - Psychiatric Exam Psychiatric exam: Normal Affect, Normal Mood - Skin Skin Exam: Dry, Intact, Normal Color, Warm Results - Vital Signs Recent Vital Signs: Last Vital Signs Temp 97.9 F 01/15/18 15:30 Pulse 100 H 01/15/18 16:44 Resp 20 01/15/18 15:30 BP 172/79 H 01/15/18 15:30 Pulse Ox 97 01/15/18 16:44 - Labs Result Diagrams: 01/16/18 06:57 01/16/18 06:57 Labs: Laboratory Results - last 24 hr 01/14/18 01/14/18 01/15/18 19:57 20:41 00:58 POC Glucose (mg/dL) 106 Total Creatine Kinase 36 L CK-MB (Mass) 0.52 Troponin I 0.0140 Urine Color Yellow Urine Clarity Clear Urine pH 5.0 Ur Specific Rake 1.014 Urine Protein Negative Urine Glucose (UA) Normal Urine Ketones Negative Urine Blood Negative Urine Nitrate Negative Urine Bilirubin Negative Urine Urobilinogen 2.0 Ur Leukocyte Esterase Neg Urine WBC (Auto) 1 Urine RBC (Auto) 1 Ur Squamous Epith Cells < 1 01/15/18 01/15/18 01/15/18 06:44 06:46 07:02 POC Glucose (mg/dL) 63 L 63 L 59 L Total Creatine Kinase CK-MB (Mass) Troponin I Urine Color Urine Clarity Urine pH Ur Specific Rake Urine Protein Urine Glucose (UA) Urine Ketones Urine Blood Urine Nitrate Urine Bilirubin Urine Urobilinogen Ur Leukocyte Esterase Urine WBC (Auto) Urine RBC (Auto) Ur Squamous Epith Cells 01/15/18 01/15/18 01/15/18 07:22 07:27 11:01 POC Glucose (mg/dL) 129 H 103 Total Creatine Kinase 33 L CK-MB (Mass) 0.46 Troponin I 0.0140 Urine Color Urine Clarity Urine pH Ur Specific Rake Urine Protein Urine Glucose (UA) Urine Ketones Urine Blood Urine Nitrate Urine Bilirubin Urine Urobilinogen Ur Leukocyte Esterase Urine WBC (Auto) Urine RBC (Auto) Ur Squamous Epith Cells 01/15/18 16:11 POC Glucose (mg/dL) 119 H Total Creatine Kinase CK-MB (Mass) Troponin I Urine Color Urine Clarity Urine pH Ur Specific Rake Urine Protein Urine Glucose (UA) Urine Ketones Urine Blood Urine Nitrate Urine Bilirubin Urine Urobilinogen Ur Leukocyte Esterase Urine WBC (Auto) Urine RBC (Auto) Ur Squamous Epith Cells - EKG Data EKG Interpreted by: Myself EKG shows normal: Sinus rhythm Assessment & Plan (1) Chest pain Status: Acute (2) CAD (coronary artery disease), [place] coronary artery Status: Acute (3) HTN (hypertension) Status: Acute (4) Diabetes Status: Acute (5) Gout Status: Acute (6) Bradycardia Status: Acute - Assessment and Plan (Free Text) Plan: echo and ex nuc st in am add metoprolol and norvasc recommend glucose checks and treatment of diabetes. check labs CONSIDER TFTS AVOID RATE CONTROLLING AGENTS
[2018-01-16 07:19] LABS: HEMOGLOBIN 11.1 g/dL (12.0-18.0); MEAN CELL VOLUME 83.6 fL (80.0-94.0); MEAN CORPUSCULAR HEMOGLOBIN 28.3 pg (27.0-31.0); MEAN CORPUSCULAR HGB CONC 33.8 g/dL (33.0-37.0); MEAN PLATELET VOLUME 7.6 fL (7.2-11.7); RBC 3.91 Mil/uL (4.40-5.90); RED CELL DISTRIBUTION WIDTH 15.6 % (11.5-14.5); WHITE BLOOD COUNT 4.3 K/uL (4.8-10.8)
[2018-01-16 07:45] LABS: ALBUMIN 3.2 g/dL (3.5-5.0); ALT/SGPT 16 U/L (21-72); AST/SGOT 19 U/L (17-59); BLOOD UREA NITROGEN 17 mg/dL (9-20); CALCIUM 8.6 mg/dl (8.6-10.4); GFR AFRICAN-AMERICAN > 60; GFR NON-AFRICAN AMERICAN 54
--- NOTE | 2018-01-16 11:47 | CP.PCM.PN ---
Subjective - Date & Time of Evaluation Date of Evaluation: 01/16/18 Time of Evaluation: 14:00 - Subjective Subjective: PGY-[address] Haddad Patient seen and examined at bedside. Patient reports his chest pain resolved. Patient is aware of his pending results for cardiac workup. Patient denies fever , chills, headache, shortness of breath, nausea, vomiting, or diarrhea. Objective - Vital Signs/Intake and Output Vital Signs (last 24 hours): Temp Pulse Resp BP Pulse Ox 97.8 F 60 20 153/69 H 94 L 01/16/18 07:35 01/16/18 08:00 01/16/18 07:35 01/16/18 07:35 01/16/18 07:35 - Medications Medications: Current Medications Amlodipine Besylate (Norvasc) 5 mg PO DAILY [facility] Last Admin: 01/15/18 18:30 Dose: 5 mg Aspirin (Aspirin) 325 mg PO DAILY [facility] Last Admin: 01/15/18 09:18 Dose: 325 mg Enoxaparin Sodium (Lovenox) 40 mg SC DAILY [facility] Last Admin: 01/15/18 09:18 Dose: 40 mg - Labs Labs: 01/16/18 06:57 01/16/18 06:57 - Constitutional Appears: Non-toxic, No Acute Distress - Head Exam Head Exam: ATRAUMATIC, NORMAL INSPECTION - Eye Exam Eye Exam: EOMI, Normal appearance - ENT Exam ENT Exam: Mucous Membranes Moist - Neck Exam Neck Exam: Normal Inspection - Respiratory Exam Respiratory Exam: Clear to Ausculation Bilateral, NORMAL BREATHING PATTERN. absent: Wheezes, Respiratory Distress - Cardiovascular Exam Cardiovascular Exam: REGULAR RHYTHM, +S1, +S2. absent: Murmur - GI/Abdominal Exam GI & Abdominal Exam: Soft, Normal Bowel Sounds - Extremities Exam Extremities Exam: Full ROM, Normal Inspection - Neurological Exam Neurological Exam: Alert, Awake, Oriented x3 - Psychiatric Exam Psychiatric exam: Normal Affect, Normal Mood - Skin Skin Exam: Dry, Warm Assessment and Plan - Assessment and Plan (Free Text) Assessment: Chest pain r/o ACS -Troponin negative x3 -Echo shows borderline LVH, EF 40-45% -EKG shows NSR at 67bpm, RBBB -Cardiology consult, Dr. Parish help appreciated -Follow up nuclear stress test results -ASA 325mg daily -Heart healthy diet HTN -Norvasc 5mg po daily -Metoprolol 25mg po BID Tobacco abuse -Smoking cessation was strongly advised -Nicotine patch 21mg daily DM -ISS -ACHS -Follow up A1C -Lisinopril Prophylactic measures -Pepcid -Lovenox Discussed with attending Dr. Haddad
[2018-01-16] MEDS: Enoxaparin 40 mg Syringe SC SCH (12:18)
--- NOTE | 2018-01-16 12:21 | CARD ---
APPROVED REPORT EXAM: Two-dimensional and M-mode echocardiogram with Doppler and color Doppler. Other Information Quality : GoodRhythm : INDICATION Cardiac Disease: CAD Chest Pain RISK FACTORS Hypertension Diabetes 2D DIMENSIONS IVSd1.3 (0.7-1.1cm)LVDd6.1 (3.9-5.9cm) PWd1.1 (0.7-1.1cm)LVDs5.6 (2.5-4.0cm) FS (%) 7.6 % M-Mode DIMENSIONS RVDd2.47 (2.1-3.2cm)Left Atrium (MM)4.54 (2.5-4.0cm) IVSd1.48 (0.7-1.1cm)Aortic Root3.13 (2.2-3.7cm) LVDd6.71 (4.0-5.6cm)Aortic Cusp Exc.2.03 (1.5-2.0cm) PWd1.00 (0.7-1.1cm)FS (%) 26 % LVDs4.98 (2.0-3.8cm)LVEF (%)50 (>50%) Mitral Valve MV E Obewrtgb00.9cm/sMV A Gigyxory16.3cm/sE/A ratio1.2 TDI E/Lateral E'0.0E/Medial E'0.0 Tricuspid Valve TR Peak [id number]/sTR Peak Gr.55kqBsBSTK23msDo LEFT VENTRICLE The Left Ventricle is mildly dilated. There is borderline concentric left ventricular hypertrophy. Left ventricle systolic function is mildly to moderately impaired. The Ejection Fraction is 40-45%. There is hypokinesis in the mid-inferolateral wall. Transmitral Doppler flow pattern is Grade II-pseudonormal filling dynamics. There is no ventricular septal defect visualized. RIGHT VENTRICLE The right ventricle is normal size. The right ventricular systolic function is normal. ATRIA The left atrium is mildly dilated. The right atrium size is normal. AORTIC VALVE The aortic valve is mildly sclerotic. The aortic valve is tri-cuspid. No aortic regurgitation is present. There is no aortic valvular stenosis. MITRAL VALVE The mitral valve is normal in structure. There is no evidence of mitral valve prolapse. Mitral regurgitation is mild. Effectively regurgitant orifice 0.3 cm TRICUSPID VALVE The tricuspid valve is normal in structure. There is trace tricuspid regurgitation. Right ventricular systolic pressure is estimated at less than 30 mmHg. There is no pulmonary hypertension. PULMONIC VALVE The pulmonary valve is normal in structure. There is no pulmonic valvular regurgitation. GREAT VESSELS The aortic root is mildly enlarged. 3.7 cm The ascending aorta is normal in size. The IVC is normal in size and collapses >50% with inspiration. PERICARDIAL EFFUSION There is no pericardial effusion. <Conclusion> There is borderline concentric left ventricular hypertrophy. Left ventricle systolic function is mildly to moderately impaired. The Ejection Fraction is 40-45%. There is hypokinesis in the mid-inferolateral wall. Transmitral Doppler flow pattern is Grade II-pseudonormal filling dynamics. Mitral regurgitation is mild. Effectively regurgitant orifice 0.3 cm
--- NOTE | 2018-01-16 12:42 | CP.PCM.PN ---
Subjective - Date & Time of Evaluation Date of Evaluation: 01/16/18 Time of Evaluation: 12:41 - Subjective Subjective: pt without cp or sob today. Objective - Vital Signs/Intake and Output Vital Signs (last 24 hours): Temp Pulse Resp BP Pulse Ox 97.8 F 54 L 20 159/65 H 94 L 01/16/18 07:35 01/16/18 12:15 01/16/18 07:35 01/16/18 12:15 01/16/18 07:35 - Medications Medications: Current Medications Amlodipine Besylate (Norvasc) 5 mg PO DAILY [facility] Last Admin: 01/16/18 12:18 Dose: 5 mg Aspirin (Aspirin) 325 mg PO DAILY [facility] Last Admin: 01/16/18 12:17 Dose: 325 mg Enoxaparin Sodium (Lovenox) 40 mg SC DAILY [facility] Last Admin: 01/16/18 12:18 Dose: 40 mg - Labs Labs: 01/16/18 06:57 01/16/18 06:57 - Constitutional Appears: Well - Head Exam Head Exam: ATRAUMATIC, NORMAL INSPECTION, NORMOCEPHALIC - Eye Exam Eye Exam: EOMI, Normal appearance, PERRL Pupil Exam: NORMAL ACCOMODATION, PERRL - ENT Exam ENT Exam: Mucous Membranes Moist, Normal Exam - Neck Exam Neck Exam: Full ROM, Normal Inspection. absent: Lymphadenopathy - Respiratory Exam Respiratory Exam: Clear to Ausculation Bilateral, NORMAL BREATHING PATTERN - Cardiovascular Exam Cardiovascular Exam: REGULAR RHYTHM, +S1, +S2, Murmur - GI/Abdominal Exam GI & Abdominal Exam: Soft, Normal Bowel Sounds. absent: Bruit, Distended, Firm , Guarding, Rigid, Tenderness, Diminished Bowel Sounds, Hernia, Hyperactive Bowel Sounds, Hypoactive Bowel Sounds, Organomegaly, Pulsatile Mass, Rebound, Mass - Extremities Exam Extremities Exam: Full ROM, Normal Capillary Refill, Normal Inspection. absent : Calf Tenderness, Joint Swelling, Pedal Edema, Tenderness - Back Exam Back Exam: NORMAL INSPECTION. absent: CVA tenderness (L), CVA tenderness (R), Full ROM, muscle spasm, paraspinal tenderness, rash noted, tenderness, vertebral tenderness - Neurological Exam Neurological Exam: Alert, Awake, CN II-XII Intact, Normal Gait, Oriented x3 - Psychiatric Exam Psychiatric exam: Normal Affect, Normal Mood - Skin Skin Exam: Dry, Intact, Normal Color, Warm Assessment and Plan (1) Chest pain Status: Acute (2) CAD (coronary artery disease), [place] coronary artery Status: Acute (3) HTN (hypertension) Status: Acute (4) Diabetes Status: Acute (5) Gout Status: Acute (6) Bradycardia Status: Acute - Assessment and Plan (Free Text) Plan: lexiscan stress test performed. awaiting images. if st negative then may be d/ c'd. f/u with dr florez in 2 weeks. NOTE PT WITH SINUS CARLA WHICH IS RESPONSIVE TO MOVEMENT. AVOID RATE CONTROLLING AGENTS.
--- NOTE | 2018-01-16 13:01 | CARD ---
APPROVED REPORT EKG Measurement Heart [id number] <Conclusion> Normal sinus rhythm with sinus arrhythmia Right bundle branch block T wave abnormality, consider lateral ischemia Abnormal ECG
[2018-01-16] MEDS: (Novolin R) Insulin Human Regular 100 units/ml vial SC SCH (22:17)
--- NOTE | 2018-01-17 06:43 | HP ---
HISTORY OF PRESENT ILLNESS: The patient is a 72-year-old male, admitted to the hospital with chief complaint of chest pain. Patient smoker. PHYSICAL EXAMINATION: GENERAL: The patient is awake, alert, and oriented. VITAL SIGNS: Temperature 98, pulse 90. HEENT: Within normal limits. NECK: Supple. CHEST: Symmetric. HEART: Regular. ABDOMEN: Soft. EXTREMITIES: No edema. IMPRESSION: Patient is suffering from unstable angina. Patient to get bedrest, supportive care. Kevin Haddad MD
[2018-01-17] MEDS: (Novolin R) Insulin Human Regular 100 units/ml vial SC SCH ×2 (07:57→11:12)
[2018-01-17 08:18] LABS: BASO % 0.5 % (0.0-2.0); EOS # 0.4 K/uL (0.0-0.7); EOS % 7.9 % (0.0-4.0); HEMOGLOBIN 11.1 g/dL (12.0-18.0); LYMPH # 1.6 K/uL (1.0-4.3); LYMPH % 34.9 % (20.0-40.0); MEAN CELL VOLUME 84.4 fL (80.0-94.0); MEAN CORPUSCULAR HEMOGLOBIN 28.5 pg (27.0-31.0); MEAN CORPUSCULAR HGB CONC 33.8 g/dL (33.0-37.0); MEAN PLATELET VOLUME 7.7 fL (7.2-11.7); MONO # 0.4 K/uL (0.0-0.8); MONO % 8.2 % (0.0-10.0); NEUT # 2.2 K/uL (1.8-7.0); NEUT % 48.5 % (50.0-75.0); RBC 3.89 Mil/uL (4.40-5.90); RED CELL DISTRIBUTION WIDTH 15.8 % (11.5-14.5); WHITE BLOOD COUNT 4.5 K/uL (4.8-10.8)
[2018-01-17 08:37] LABS: ALB/GLOB RATIO 1.1 (1.0-2.1); ALBUMIN 3.4 g/dL (3.5-5.0); ALT/SGPT 15 U/L (21-72); AST/SGOT 19 U/L (17-59); BLOOD UREA NITROGEN 16 mg/dL (9-20); CALCIUM 8.9 mg/dl (8.6-10.4); GFR AFRICAN-AMERICAN > 60; GFR NON-AFRICAN AMERICAN 54
[2018-01-17] MEDS: Enoxaparin 40 mg Syringe SC SCH (09:27)
--- NOTE | 2018-01-17 09:47 | CP.PCM.PN ---
Subjective - Date & Time of Evaluation Date of Evaluation: 01/17/18 Time of Evaluation: 09:47 - Subjective Subjective: Medicine progress note for Dr. Haddad's service: Patient seen and examined. Patient denies complaints today of chest pain or dyspnea. Patient eating and sleeping well. Objective - Vital Signs/Intake and Output Vital Signs (last 24 hours): Temp Pulse Resp BP Pulse Ox 97.4 F L 48 L 18 124/61 97 01/17/18 07:25 01/17/18 07:45 01/17/18 07:25 01/17/18 07:25 01/17/18 07:25 - Medications Medications: Current Medications Amlodipine Besylate (Norvasc) 5 mg PO DAILY [facility] Last Admin: 01/17/18 09:27 Dose: 5 mg Aspirin (Aspirin) 325 mg PO DAILY [facility] Last Admin: 01/17/18 09:27 Dose: 325 mg Enoxaparin Sodium (Lovenox) 40 mg SC DAILY [facility] Last Admin: 01/17/18 09:27 Dose: 40 mg Famotidine (Pepcid) 20 mg PO DAILY [facility] Last Admin: 01/17/18 09:27 Dose: 20 mg Insulin Human Regular (Novolin R) [address] [facility] PRN Reason: Protocol Last Admin: 01/17/18 07:57 Dose: Not Given Metoprolol Tartrate (Lopressor) 25 mg PO BID [facility] Last Admin: 01/16/18 18:49 Dose: Not Given Nicotine (Nicoderm Cq) 1 patch TD DAILY [facility] Last Admin: 01/17/18 09:27 Dose: 1 patch - Labs Labs: 01/17/18 08:11 01/17/18 08:11 - Constitutional Appears: No Acute Distress - Head Exam Head Exam: ATRAUMATIC, NORMOCEPHALIC - Eye Exam Eye Exam: EOMI - ENT Exam ENT Exam: Mucous Membranes Moist - Respiratory Exam Respiratory Exam: Clear to Ausculation Bilateral, NORMAL BREATHING PATTERN - Cardiovascular Exam Cardiovascular Exam: +S1, +S2 - GI/Abdominal Exam GI & Abdominal Exam: Soft, Normal Bowel Sounds. absent: Tenderness - Extremities Exam Extremities Exam: Normal Inspection. absent: Calf Tenderness, Pedal Edema - Neurological Exam Neurological Exam: Alert, Awake - Psychiatric Exam Psychiatric exam: Normal Affect - Skin Skin Exam: Warm Assessment and Plan - Assessment and Plan (Free Text) Assessment: CAD patient has history of coronary stents x3 -Echo shows borderline LVH, EF 40-45% -Cardiology consult, Dr. Parish help appreciated nuclear stress 01/16: a large are of reversible ischemia of the mid to distal inferolateral wall. The left ventricular function appears preserved. This appears consistent with critical stenosis in the circumflex distribution. The patient is a smoker and has previous multivessel intervention. The patient is recommended to have cardiac cath. risk and beenfits explained. NPO for cath today. -ASA 325mg daily Chest pain r/o ACS resolved -Troponin negative x3 Bradycardia hold all rate control agents thyroid function studies normal HTN -Norvasc 5mg po daily hold all rate controlling medications Tobacco abuse -Smoking cessation was strongly advised -Nicotine patch 21mg daily Elevated glucose A1C 4.8 Prophylactic measures -Pepcid 20mg daily -Lovenox 40mg SC daily Medical management as per Dr. Haddad
[2018-01-17 12:03] LABS: T3 1.69 nmol/L (1.49-2.60)
--- NOTE | 2018-01-17 12:12 | CP.PCM.PN ---
Subjective - Date & Time of Evaluation Date of Evaluation: 01/17/18 Time of Evaluation: 12:00 - Subjective Subjective: I reviewed the stress test . There is a large are of reversible ischemia of the mid to distal inferolateral wall. The left ventricular function appears preserved. This appears consistent with critical stenosis in the circumflex distribution. The patient is a smoker and has previous multivessel intervention. The patient is recommended to have cardiac cath. risk and beenfits explained. NPO for cath today. Objective - Vital Signs/Intake and Output Vital Signs (last 24 hours): Temp Pulse Resp BP Pulse Ox 97.4 F L 48 L 18 124/61 97 01/17/18 07:25 01/17/18 07:45 01/17/18 07:25 01/17/18 07:25 01/17/18 07:25 - Medications Medications: Current Medications Amlodipine Besylate (Norvasc) 5 mg PO DAILY [facility] Last Admin: 01/17/18 09:27 Dose: 5 mg Aspirin (Aspirin) 325 mg PO DAILY [facility] Last Admin: 01/17/18 09:27 Dose: 325 mg Enoxaparin Sodium (Lovenox) 40 mg SC DAILY [facility] Last Admin: 01/17/18 09:27 Dose: 40 mg Famotidine (Pepcid) 20 mg PO DAILY [facility] Last Admin: 01/17/18 09:27 Dose: 20 mg Insulin Human Regular (Novolin R) 0 unit SC [facility] PRN Reason: Protocol Last Admin: 01/17/18 11:12 Dose: Not Given Metoprolol Tartrate (Lopressor) 25 mg PO BID [facility] Last Admin: 01/16/18 18:49 Dose: Not Given Nicotine (Nicoderm Cq) 1 patch TD DAILY [facility] Last Admin: 01/17/18 09:27 Dose: 1 patch - Labs Labs: 01/17/18 08:11 01/17/18 08:11
[2018-01-17] MEDS ORDERED: Iodixanol 320 MG/ML 200 ML BOTTLE IV ONE (16:14)
[2018-01-17 17:03] LABS: INR 1.2; PROTHROMBIN TIME 13.1 SECONDS (9.7-12.2)
[2018-01-17] MEDS ORDERED: Midazolam 2 MG/2 ML VIAL ONE (17:19)
--- NOTE | 2018-01-17 18:49 | PCM.OP ---
Operative Report - Operative Report Date of Surgery/Procedure: 01/17/18 Time of Surgery/Procedure: 18:43 Surgeon: elinor amos Anesthesia/Sedation: concious Pre-Operative Diagnosis: abn st Post-Operative Diagnosis: multivessel cad Indication for Surgery: abn st Operative Findings: MV cad Procedure/Operation Description: left heart cath, corrs, angioseal, aortagram abdominal Estimated Blood Loss: minimal Complications: none Discharge & Condition: multivessel cad. needs CABG.
[2018-01-18 00:57] VITALS: BP 153/69; PULSE 74; RESP 20; TEMP 97.6
[2018-01-19 21:35] VITALS: O2SAT 96
== END 2018-01-18 01:55 | disposition home or self-care (01) | DRG 287 ==
LOC: C.ER 16:18 → C.9E 17:35 → C.5S 18:05 → OBSVTOIN 01-16 15:44 → C.5S 01-17 19:31 → UNDODISIN 01-18 01:55
PROVIDERS: ADMIT Internal Medicine Pulmonary Disease; ATTEND Internal Medicine Pulmonary Disease
PROC: 4A023N7 Measurement of Cardiac Sampling and Pressure, Left Heart, Percutaneous Approach (ICD-10-PCS; principal; 2018-01-17)
PROC: B211YZZ Fluoroscopy of Multiple Coronary Arteries using Other Contrast (ICD-10-PCS; 2018-01-17)
PROC: B215YZZ Fluoroscopy of Left Heart using Other Contrast (ICD-10-PCS; 2018-01-17)
PROC: B410YZZ Fluoroscopy of Abdominal Aorta using Other Contrast (ICD-10-PCS; 2018-01-17)
DX: I25.110 Atherosclerotic heart disease of native coronary artery with unstable angina pectoris (principal); E11.9 Type 2 diabetes mellitus without complications; I45.10 Unspecified right bundle-branch block; F17.210 Nicotine dependence, cigarettes, uncomplicated; I10 Essential (primary) hypertension; M10.9 Gout, unspecified; Z79.82 Long term (current) use of aspirin; Z95.5 Presence of coronary angioplasty implant and graft; G51.0 Bell's palsy; Z79.4 Long term (current) use of insulin